=== PATIENT | male | born 1980 | race Caucasian/White ===

== ENCOUNTER 2017-11-08 13:21 | Emergency (ER) | payer SELFPAY ==
[~2017-11-08] VITALS: Ht 175.3 cm; Wt 77.1 kg
[2017-11-08 14:10] VITALS: BP 130/87
== END 2017-11-08 14:15 | disposition home or self-care (01) ==
LOC: ER 13:21
DX: J34.0 Abscess, furuncle and carbuncle of nose (principal); F17.210 Nicotine dependence, cigarettes, uncomplicated; F12.90 Cannabis use, unspecified, uncomplicated
CPT/HCPCS: 99283